=== PATIENT | male | born 1940 | race African-American/Black ===

== ENCOUNTER 2017-08-20 10:46 | Outpatient (CLI) | payer MEDICARE ==
--- NOTE | 2017-08-20 12:45 | RAD ---
PA AND LATERAL CHEST: Indication: History of dyspnea. Comparison: 02-20-17 FINDINGS: Chronic lung changes are stable. No confluent airspace opacity, suspicious pulmonary nodule or pleura l fluid is evident. Cardiomediastinal silhouette is within normal limits. Chronic osseous changes are stable to the comparison study dated 02-20-17. IMPRESSION: No acute cardiopulmonary abnormality demonstrated. POS: [facility]
== END 2017-08-20 10:47 | disposition home or self-care (01) ==
LOC: RAD 10:46
PROVIDERS: ATTEND Internal Medicine Critical Care Medicine
DX: R06.00 Dyspnea, unspecified (principal)
CPT/HCPCS: 71046

== ENCOUNTER 2018-08-06 12:51 | Outpatient (CLI) | payer MEDICARE ==
--- NOTE | 2018-08-06 13:45 | RAD ---
CHEST TWO VIEWS: 08/06/2018 PROVIDED CLINICAL HISTORY: Dyspnea. FINDINGS: The cardiac and mediastinal silhouette is within normal limits. The lungs appear clear. No pleural fluid or pneumothorax apparent. IMPRESSION: No evidence for an acute cardiopulmonary process. POS: [facility]
== END 2018-08-06 12:52 | disposition home or self-care (01) ==
LOC: RAD 12:51
PROVIDERS: ATTEND Internal Medicine Critical Care Medicine
DX: R06.00 Dyspnea, unspecified (principal)
CPT/HCPCS: 71046

== ENCOUNTER 2019-02-27 08:57 | Outpatient (CLI) | payer MEDICARE ==
[2019-02-27 13:42] LABS: Hemoglobin 14.3 g/dL (14.0-18.0); Mean Corpuscular HGB CONC 33.3 g/dL (32.0-36.0); Mean Corpuscular Volume 99.1 fL (78.0-98.0); Mean Platelet Volume 6.7 fL (7.4-10.4); Platelet Count 238 thou/uL (130-400); RBC Distribution Width 11.2 % (11.5-14.5); Red Blood Cell (RBC) Count 4.31 mill/uL (4.70-6.10); White Blood Cell (WBC) Count 8.5 thou/uL (4.8-10.8)
[2019-02-27 13:45] LABS: Bacteria/HPF None Seen HPF (None Seen); Bilirubin Negative (Negative); Blood, Urine Negative (Negative); Clarity Clear (Clear); Glucose, Urine (Dipstick) Normal (Negative); Leukocyte Negative Leu/uL (Negative); Nitrite Negative (Negative); Protein, Urine (Dipstick) Negative (Neg-Trace); RBC/HPF 0-3 HPF (0-3); Squamous Epithelial 0-3 HPF (0-3); Urobilinogen Normal mg/dL (Less than 2); WBC/HPF 0-3 HPF (0-3)
[2019-02-27 14:07] LABS: Anion Gap 12 mmol/L (10-20); BUN (Urea Nitrogen) 16 mg/dL (8.4-25.7); Calc. Creatinine Clearance 0 mL/min (70-130); Calcium 9.7 mg/dL (7.8-10.44); Carbon Dioxide 25 mmol/L (23-31); Chloride 109 mmol/L (98-107); Estimated GFR-MDRD Greater than 90; Glucose 108 mg/dL (83-110); Potassium 4.3 mmol/L (3.5-5.1); Sodium 142 mmol/L (136-145)
[2019-02-27 14:20] LABS: Prothrombin Time 13.1 SEC (12.0-14.7)
[2019-02-27 14:21] LABS: PTT 32.7 SEC (22.9-36.1)
--- NOTE | 2019-03-02 16:45 | EKG ---
Test Reason : Blood Pressure : / mmHG Vent. Rate : 069 BPM Atrial Rate : 069 BPM P-R Int : 154 ms QRS Dur : 082 ms QT Int : 380 ms P-R-T Axes : 073 073 072 degrees QTc Int : 407 ms Normal sinus rhythm Normal ECG No previous ECGs available Confirmed by ELAN MOJICA ([id number]) on 03/02/2019 4:44:48 PM Referred By: YOSELIN Confirmed By:ELAN MOJICA
== END 2019-02-27 08:58 | disposition home or self-care (01) ==
LOC: LABBT 08:57
PROVIDERS: ATTEND Urology
DX: Z01.818 Encounter for other preprocedural examination (principal); N40.0 Benign prostatic hyperplasia without lower urinary tract symptoms
CPT/HCPCS: 80048; 81001; 85027; 85610; 85730; 87086; 93005; 93010

== ENCOUNTER 2019-08-07 09:45 | Outpatient (CLI) | payer MEDICARE ==
--- NOTE | 2019-08-07 10:18 | RAD ---
TWO VIEW CHEST: History: Dyspnea. Comparison: 08-06-18 FINDINGS: The lungs appear clear of infiltrate. Heart and mediastinum unremarkable. Vasculature normal. Tiny no dular opacity in the left apical region is stable. Osseous structures are unremarkable. IMPRESSION: No acute process. No interval change. POS: [facility]
== END 2019-08-07 09:46 | disposition home or self-care (01) ==
LOC: RAD 09:45
PROVIDERS: ATTEND Internal Medicine Critical Care Medicine
DX: R06.00 Dyspnea, unspecified (principal)
CPT/HCPCS: 71046

== ENCOUNTER 2020-04-05 09:43 | Outpatient (CLI) | payer MEDICARE ==
--- NOTE | 2020-04-05 10:14 | RAD ---
EXAM: Chest 2 views: HISTORY: Dyspnea COMPARISON: 08/07/2019 FINDINGS: There is a normal-sized cardiomediastinal silhouette. There is no evidence of consolidation, mass, or pleural effusion. No acute osseous abnormality. IMPRESSION: No evidence of acute cardiopulmonary disease
== END 2020-04-05 09:44 | disposition home or self-care (01) ==
LOC: BICRAD 09:43
PROVIDERS: ATTEND Internal Medicine Critical Care Medicine
DX: R06.00 Dyspnea, unspecified (principal)
CPT/HCPCS: 71046

== ENCOUNTER 2022-07-30 10:39 | Outpatient (CLI) | payer MEDICARE | END 2022-07-30 10:40 | disposition home or self-care (01) | LOC: RAD 10:39 | PROVIDERS: ATTEND Internal Medicine Critical Care Medicine | DX: R06.00 Dyspnea, unspecified (principal) | CPT/HCPCS: 71046 ==

== ENCOUNTER 2022-10-08 13:36 | Outpatient (CLI) | payer MEDICARE | END 2022-10-08 13:37 | disposition home or self-care (01) | LOC: BICCT 13:36 | PROVIDERS: ATTEND Internal Medicine Critical Care Medicine | DX: R91.1 Solitary pulmonary nodule (principal); J47.9 Bronchiectasis, uncomplicated; L90.5 Scar conditions and fibrosis of skin | CPT/HCPCS: 71250 ==

== ENCOUNTER 2023-07-31 12:23 | Outpatient (CLI) | payer MEDICARE | END 2023-07-31 12:24 | disposition home or self-care (01) | LOC: RAD 12:23 | PROVIDERS: ATTEND Internal Medicine Critical Care Medicine | DX: R06.00 Dyspnea, unspecified (principal) | CPT/HCPCS: 71046 ==

== ENCOUNTER 2024-04-30 09:42 | Observation (INO) | payer MEDICARE ==
[2024-04-30 10:43] LABS: #Basophils 0.05 10x3/uL (0.0-0.2); %Basophils 0.5 % (0.0-1.0); %Eosinophils 0.6 % (0.0-10.0); %Lymphocytes 7.4 % (21.0-51.0); %Monocytes 7.3 % (0.0-10.0); %Neutrophils 83.7 % (42.0-75.0); Hematocrit 43.4 % (42.0-52.0); Hemoglobin 13.9 g/dL (14.0-18.0); Mean Corpuscular Hemoglobin 32.4 pg (27.0-31.0); Mean Corpuscular Volume 101.2 fL (78.0-98.0); Platelet Count 201 10x3/uL (130-400); RBC Distribution Width 12.1 % (11.5-14.5); Red Blood Cell (RBC) Count 4.29 mill/uL (4.70-6.10)
[2024-04-30 10:54] LABS: ALT (SGPT) 13 U/L (8-55); AST (SGOT) 15 U/L (5-34); Albumin 3.5 g/dL (3.4-4.8); Alkaline Phosphatase 90 U/L (40-110); Anion Gap 15 mmol/L (10-20); BUN (Urea Nitrogen) 9 mg/dL (8.4-25.7); Calc. Creatinine Clearance 0 mL/min (70-130); Carbon Dioxide 23 mmol/L (23-31); Chloride 105 mmol/L (98-107); Estimated GFR 89; Globulin 3.1 g/dL (2.4-3.5); Glucose 182 mg/dL (83-110); Protein, Total 6.6 g/dL (5.8-8.1); Sodium 139 mmol/L (136-145)
[2024-04-30] MEDS ORDERED: Ipratropium/Albuterol 3 ML NEB ONE ×2 (10:55→12:04)
[2024-04-30 11:26] LABS: Troponin I Less than 0.010 ng/mL (< 0.028)
[2024-04-30] MEDS ORDERED: Azithromycin 250 MG TAB ONE (12:43)
[2024-04-30] MEDS ORDERED: cefTRIAXone (ROCEPHIN) 1 GM VIAL ONE (12:45)
[2024-04-30] MEDS ORDERED: Sodium Chloride 0.9% 100 ML ONE (12:45)
[2024-04-30] MEDS ORDERED: Ipratropium/Albuterol 3 ML NEB NEB PRN (13:18)
[2024-04-30] MEDS ORDERED: Acetaminophen 325 MG TAB PO PRN (13:18)
[2024-04-30 14:08] LABS: Troponin I Less than 0.010 ng/mL (< 0.028)
[2024-04-30 15:45] VITALS: BMI 19.5
[2024-04-30 16:44] LABS: Troponin I Less than 0.010 ng/mL (< 0.028)
[2024-04-30] MEDS: Nicotine 14 MG PATCH TD SCH (17:50)
[2024-04-30] MEDS: Insulin Lispro 100 UNIT/ML 10 ML VIAL SC PRN ×2 (18:33→21:15)
[2024-04-30] MEDS: Ipratropium/Albuterol 3 ML NEB NEB SCH (18:40)
[2024-04-30] MEDS: Mometasone 200 MCG/Formoterol 5 MCG 120 PUFF INHALER INH SCH (18:40)
[2024-04-30] MEDS: Arformoterol 15 MCG/2 ML NEB NEB SCH (18:42)
[2024-05-01 04:52] LABS: #Basophils Less than 0.03 10x3/uL (0.0-0.2); #Eosinophils Less than 0.03 10x3/uL (0.0-0.7); %Lymphocytes 6.4 % (21.0-51.0); %Monocytes 6.6 % (0.0-10.0); %Neutrophils 86.6 % (42.0-75.0); Hematocrit 37.3 % (42.0-52.0); Hemoglobin 12.4 g/dL (14.0-18.0); Mean Corpuscular HGB CONC 33.2 g/dL (32.0-36.0); Mean Corpuscular Hemoglobin 32.6 pg (27.0-31.0); Mean Corpuscular Volume 98.2 fL (78.0-98.0); Mean Platelet Volume 9.2 fL (7.4-10.4); Platelet Count 200 10x3/uL (130-400); RBC Distribution Width 11.9 % (11.5-14.5)
[2024-05-01 05:11] LABS: Anion Gap 12 mmol/L (10-20); BUN (Urea Nitrogen) 16 mg/dL (8.4-25.7); Calc. Creatinine Clearance 67 mL/min (70-130); Calcium 8.8 mg/dL (7.8-10.44); Carbon Dioxide 23 mmol/L (23-31); Chloride 106 mmol/L (98-107); Estimated GFR 90; Glucose 210 mg/dL (83-110); Potassium 4.4 mmol/L (3.5-5.1); Sodium 137 mmol/L (136-145)
[2024-05-01] MEDS: Enoxaparin 40 MG (0.4 mL) SYRINGE SC SCH (08:37)
[2024-05-01] MEDS: predniSONE 20 MG TAB PO SCH (08:37)
[2024-05-01] MEDS: Azithromycin 250 MG TAB PO SCH (08:37)
[2024-05-01 09:47] VITALS: BMI 19.5
[2024-05-01 12:35] VITALS: BP 153/83; TEMP 98.3
[2024-05-01] MEDS ORDERED: cefTRIAXone\\ROCEPHIN 1 GM in Sodium Chloride 0.9% 100 ML IVPB SCH (13:00)
== END 2024-05-01 11:50 | disposition home or self-care (01) ==
LOC: ERS 09:42 → T4-A 14:04
PROVIDERS: ADMIT Hospitalist; ATTEND Family Medicine
DX: J96.01 Acute respiratory failure with hypoxia (principal); J44.1 Chronic obstructive pulmonary disease with (acute) exacerbation; I10 Essential (primary) hypertension; I25.10 Atherosclerotic heart disease of native coronary artery without angina pectoris; F17.200 Nicotine dependence, unspecified, uncomplicated; Z95.5 Presence of coronary angioplasty implant and graft; Z98.49 Cataract extraction status, unspecified eye; Z79.51 Long term (current) use of inhaled steroids; Z79.82 Long term (current) use of aspirin; Z79.2 Long term (current) use of antibiotics; Z79.899 Other long term (current) drug therapy
CPT/HCPCS: 71045; 80048; 80053; 82962; 83880; 84484 ×2; 85025 ×2; 93005; 94640 ×4; 96365; 99285; G0378 ×3; J0696; J1815; 36415; 36416; J7512; J7620